=== PATIENT | male | born 1960 | race American Indian/Alaskan Native ===

== ENCOUNTER 2021-09-23 02:26 | Observation (INO) | payer MEDICARE ==
[2021-09-23] MEDS ORDERED: FAMOTIDINE 20 MG/2 ML INJ IV ONE (03:05)
--- NOTE | 2021-09-23 03:08 | Emergency Department Report ---
HPI - General Time Seen by Provider: 09/23/21 02:54 - HPI HPI: Room 17 Patient is a 60-year-old male present with chief complaint of angioedema. Patient states approximate 1 hour prior to arrival he noticed swelling in his tongue. Patient denies shortness of breath and just has difficulty speaking. Patient states he has been taking lisinopril for over 10 years. Patient was administered Solu-Medrol, subcu epi, Benadryl and Zofran prior to arrival ED Past Medical Hx - Past Medical History Hx Hypertension: Yes Hx Diabetes: Yes - Surgical History Additional Surgical History: Hip replacement - Family History Family history: no significant - Social History Smoking Status: Never Smoker Substance Use Type: None (Denies illicit drug use), Alcohol (Occasional) ED Review of Systems ROS: Stated complaint: LISINOPRIL RXN Other details as noted in HPI Constitutional: no symptoms reported Eyes: denies: eye pain ENT: other (Tongue swelling) Respiratory: denies: shortness of breath Cardiovascular: denies: chest pain Endocrine: no symptoms reported Gastrointestinal: nausea. denies: abdominal pain Genitourinary: denies: dysuria Musculoskeletal: denies: back pain Neurological: denies: headache Physical Exam - Physical Exam Physical Exam: GENERAL: The patient is well-developed well-nourished male sitting on stretcher not appearing to be in acute distress. [] HEENT: Normocephalic. Atraumatic. Extraocular motions are intact. Tongue swelling NECK: Supple. Trachea midline. No stridor CHEST/LUNGS: Clear to auscultation. There is no respiratory distress noted. HEART/CARDIOVASCULAR: Regular. There is no tachycardia. There is no gallop rub or murmur. ABDOMEN: Abdomen is soft, nontender. Patient has normal bowel sounds. There is no abdominal distention. SKIN: There is no rash. There is no edema. There is no diaphoresis. NEURO: The patient is awake, alert, and oriented. The patient is cooperative. The patient has no focal neurologic deficits. GCS 15 MUSCULOSKELETAL: There is no evidence of acute injury. ED Medical Decision Making - Lab Data Result diagrams: 09/23/21 03:08 09/23/21 03:08 Laboratory Tests 09/23/21 09/23/21 03:08 03:08 WBC 6.4 RBC 3.77 Hgb 10.9 L Hct 34.4 L MCV 91 MCH 29 MCHC 32 RDW 14.1 Plt Count 206 Lymph % (Auto) 33.5 [place] % (Auto) 6.7 Eos % (Auto) 3.6 Baso % (Auto) 0.7 Lymph # (Auto) 2.1 [place] # (Auto) 0.4 Eos # (Auto) 0.2 Baso # (Auto) 0.0 Seg Neutrophils % 55.5 Seg Neutrophils # 3.5 Sodium 138 Potassium 3.9 Chloride 100.8 Carbon Dioxide 19 L Anion Gap 22 BUN 28 H Creatinine 1.7 H Estimated GFR 41 BUN/Creatinine Ratio 16 Glucose 240 H Calcium 9.5 Critical care attestation.: If time is entered above; I have spent that time in minutes in the direct care of this critically ill patient, excluding procedure time. ED Disposition Clinical Impression: Angioedema Disposition: ADMITTED INPATIENT Is pt being admited?: Yes Does the pt Need Aspirin: No Condition: Fair Time of Disposition: 04:01 (Hospitalist called (Dr. Henry))
[2021-09-23 03:32] LABS: Basophils % (Auto) 0.7 % (0.0-1.8); Eosinophils # (Auto) 0.2 K/mm3 (0.0-0.4); Eosinophils % (Auto) 3.6 % (0.0-4.3); Hematocrit 34.4 % (35.5-45.6); Hemoglobin 10.9 gm/dl (11.8-15.2); Lymphocytes # (Auto) 2.1 K/mm3 (1.2-5.4); Lymphocytes % (Auto) 33.5 % (13.4-35.0); Mean Corpuscular HGB Conc 32 % (32-34); Mean Corpuscular Volume 91 fl (84-94); Monocytes # (Auto) 0.4 K/mm3 (0.0-0.8); Monocytes % (Auto) 6.7 % (0.0-7.3); Platelet Count 206 K/mm3 (140-440); Red Blood Count 3.77 M/mm3 (3.65-5.03); Red Cell Distribution Width 14.1 % (13.2-15.2)
[2021-09-23 03:49] LABS: Calcium 9.5 mg/dL (8.4-10.2)
[2021-09-23] MEDS ORDERED: MORPHINE 4 MG/1 ML INJ IV PRN (08:38)
[2021-09-23] MEDS ORDERED: DEXTROSE 50% IN WATER (25GM) 50 ML SYRINGE IV PRN (08:42)
[2021-09-23] MEDS ORDERED: DEXTROSE 10% *Hypoglycemia IV PRN (08:46)
[2021-09-23] MEDS ORDERED: ACETAMINOPHEN 325 MG TAB PO PRN (09:00)
[2021-09-23] MEDS ORDERED: MORPHINE 2 MG/1 ML INJ IV PRN (09:00)
[2021-09-23] MEDS ORDERED: ONDANSETRON 4 MG/2 ML INJ IV PRN (09:00)
[2021-09-23] MEDS ORDERED: D5W/0.9% NACL 1,000 ML IV SCH (09:00)
[2021-09-23] MEDS ORDERED: oxyCODONE /ACETAMINOPHEN 5-325MG TAB PO PRN (09:00)
[2021-09-23] MEDS: ENOXAPARIN 40 MG/0.4 ML INJ SUB-Q SCH (10:04)
[2021-09-23] MEDS: methylPREDNISolone Sod Succinate 40 MG/1 ML INJ IV SCH (10:05)
[2021-09-23] MEDS: INSULIN REGULAR, HUMAN 100 UNITS/1 ML SUB-Q SCH ×3 (11:22→23:12)
--- NOTE | 2021-09-23 12:12 | Consultation ---
History of Present Illness - Reason for Consult Consult date: 09/23/21 Angioedema - History of Present Illness 60 y/o male with complaints of angioedema Past History Past Medical History: hypertension Medications and Allergies Allergies Allergy/AdvReac Type Severity Reaction Status Date / Time lisinopril Allergy Swelling Verified 09/23/21 03:05 Active Meds: Active Medications Acetaminophen (Acetaminophen 325 Mg Tab) 650 mg PO Q4H PRN PRN Reason: Pain MILD(1-3)/Fever >100.5/ZAMORA Dextrose (Dextrose 10% *Hypoglycemia) 0 ml IV PRN PRN PRN Reason: Hypoglycemia Enoxaparin Sodium (Enoxaparin 40 Mg/0.4 Ml Inj) 40 mg SUB-Q DAILY [facility]; Protocol Last Admin: 09/23/21 10:04 Dose: 40 mg Dextrose/Sodium Chloride (D5ns) 1,000 mls @ 75 mls/hr IV DIRECT KERRY Insulin Human Regular (Insulin Regular, Human 100 Units/1 Ml) 0 units SUB-Q ACHS [facility]; Protocol Last Admin: 09/23/21 11:22 Dose: 6 units Methylprednisolone Sodium Succinate (Methylprednisolone Sod Succinate 40 Mg/1 Ml Inj) 20 mg IV DAILY [facility] Last Admin: 09/23/21 10:05 Dose: 20 mg Morphine Sulfate (Morphine 2 Mg/1 Ml Inj) 2 mg IV Q4H PRN PRN Reason: Pain , Severe (7-10) Ondansetron HCl (Ondansetron 4 Mg/2 Ml Inj) 4 mg IV Q8H PRN PRN Reason: Nausea And Vomiting Oxycodone/Acetaminophen (Oxycodone /Acetaminophen 5-325mg Tab) 1 tab PO Q6H PRN PRN Reason: Pain, Moderate (4-6) Sodium Chloride (Sodium Chloride 0.9% 10 Ml Flush Syringe) 10 ml IV BID [facility] Last Admin: 09/23/21 10:05 Dose: 10 ml Sodium Chloride (Sodium Chloride 0.9% 10 Ml Flush Syringe) 10 ml IV PRN PRN PRN Reason: LINE FLUSH Exam - Constitutional Vitals: Temp Pulse Resp BP Pulse Ox 98.8 F 79 18 140/73 94 09/23/21 02:35 09/23/21 08:42 09/23/21 08:42 09/23/21 08:42 09/23/21 08:42 Results - Labs CBC & Chem 7: 0322/22 03:08 09/23/21 03:08 Labs: Abnormal lab results 09/23/21 09/23/21 Range/Units 03:08 03:08 Hgb 10.9 L (11.8-15.2) gm/dl Hct 34.4 L (35.5-45.6) % Carbon Dioxide 19 L (22-30) mmol/L BUN 28 H (9-20) mg/dL Creatinine 1.7 H (0.8-1.3) mg/dL Glucose 240 H (75-100) mg/dL Assessment and Plan 60 y/o male with complaints of angioedema 1. Medication Review, Has been on lisinopril and it is known that timing of this drug does not play a role on when angioedema can happen 2. Suggest q8 hour steroids, q6 benadryl and BID pepci 3. Monitoring for upper airway noise stridor and close monitoring of patient
--- NOTE | 2021-09-23 16:14 | History and Physical Report ---
History of Present Illness Date of examination: 09/23/21 Date of admission: 09/23/21 08:38 Chief complaint: Angioedema History of present illness: Patient is a 60-year-old male past medical history of noninsulin-dependent type 2 diabetes mellitus, hypertension, hyperlipidemia, gout, and CKD stage III who presented with an acute presentation of angioedema (swelling of tongue and face) after being awakened by oral irritation. The patient describes this being a new phenomenon, and he admits to being on lisinopril for over 10 years. The patient denied any shortness of breath or difficulty with breathing or swallowing. The swelling has mostly resolved. On presentation, the patient was found to be hemodynamically stable saturating well on room oxygen. Patient is being monitored in the setting of recent angioedema. Past History Past Medical History: diabetes, hypertension, hyperlipidemia, renal failure, other (Gout) Past Surgical History: total hip replacement Social history: , lives with family, full code Family history: hypertension Medications and Allergies Allergies Allergy/AdvReac Type Severity Reaction Status Date / Time lisinopril Allergy Swelling Verified 09/23/21 03:05 Home Medications Medication Instructions Recorded Confirmed Last Taken Type Colchicine [Colcrys] 1.2 mg PO DAILY 09/23/21 09/23/21 Unknown History Glimepiride [Amaryl] 8 mg PO QAM 09/23/21 09/23/21 Unknown History Pantoprazole [Protonix] 40 mg PO QDAY 09/23/21 09/23/21 Unknown History allopurinoL [Zyloprim] 100 mg PO QDAY 09/23/21 09/23/21 Unknown History metFORMIN XR [Glucophage XR] 1,000 mg PO BID 09/23/21 09/23/21 Unknown History Active Meds: Active Medications Acetaminophen (Acetaminophen 325 Mg Tab) 650 mg PO Q4H PRN PRN Reason: Pain MILD(1-3)/Fever >100.5/ZAMORA Dextrose (Dextrose 10% *Hypoglycemia) 0 ml IV PRN PRN PRN Reason: Hypoglycemia Enoxaparin Sodium (Enoxaparin 40 Mg/0.4 Ml Inj) 40 mg SUB-Q DAILY [facility]; Protocol Last Admin: 09/23/21 10:04 Dose: 40 mg Dextrose/Sodium Chloride (D5ns) 1,000 mls @ 75 mls/hr IV DIRECT KERRY Insulin Human Regular (Insulin Regular, Human 100 Units/1 Ml) 0 units SUB-Q ACHS [facility]; Protocol Last Admin: 09/23/21 11:22 Dose: 6 units Methylprednisolone Sodium Succinate (Methylprednisolone Sod Succinate 40 Mg/1 Ml Inj) 20 mg IV DAILY [facility] Last Admin: 09/23/21 10:05 Dose: 20 mg Morphine Sulfate (Morphine 2 Mg/1 Ml Inj) 2 mg IV Q4H PRN PRN Reason: Pain , Severe (7-10) Ondansetron HCl (Ondansetron 4 Mg/2 Ml Inj) 4 mg IV Q8H PRN PRN Reason: Nausea And Vomiting Oxycodone/Acetaminophen (Oxycodone /Acetaminophen 5-325mg Tab) 1 tab PO Q6H PRN PRN Reason: Pain, Moderate (4-6) Sodium Chloride (Sodium Chloride 0.9% 10 Ml Flush Syringe) 10 ml IV BID [facility] Last Admin: 09/23/21 10:05 Dose: 10 ml Sodium Chloride (Sodium Chloride 0.9% 10 Ml Flush Syringe) 10 ml IV PRN PRN PRN Reason: LINE FLUSH Review of Systems All systems: negative Ears, nose, mouth and throat: swelling in mouth, swelling in throat Exam - Constitutional Vitals: Temp Pulse Resp BP Pulse Ox 98.8 F 79 18 140/73 96 09/23/21 02:35 09/23/21 08:42 09/23/21 08:42 09/23/21 08:42 09/23/21 12:00 General appearance: Present: no acute distress, well-nourished, obese - EENT Eyes: Present: PERRL, EOM intact ENT: hearing intact, clear oral mucosa, dentition normal - Neck Neck: Present: supple, normal ROM - Respiratory Respiratory effort: normal Respiratory: bilateral: CTA - Cardiovascular Rhythm: regular Heart Sounds: Present: S1 & S2 - Extremities Extremities: no ischemia, pulses intact, pulses symmetrical, No edema, normal temperature, normal color, Full ROM Peripheral Pulses: within normal limits - Abdominal General gastrointestinal: Present: soft, non-tender, non-distended, normal bowel sounds Male genitourinary: Present: deferred - Rectal Rectal Exam: deferred - Integumentary Integumentary: Present: clear, warm, dry - Musculoskeletal Musculoskeletal: strength equal bilaterally - Psychiatric Psychiatric: appropriate mood/affect, intact judgment & insight, memory intact, cooperative - Neurologic Neurologic: CNII-XII intact, moves all extremities - Allied Health Allied health notes reviewed: nursing Results - Labs CBC & Chem 7: 09/23/21 03:08 09/23/21 03:08 Labs: Laboratory Last Values WBC 6.4 K/mm3 (4.5-11.0) 09/23/21 03:08 RBC 3.77 M/mm3 (3.65-5.03) 09/23/21 03:08 Hgb 10.9 gm/dl (11.8-15.2) L 09/23/21 03:08 Hct 34.4 % (35.5-45.6) L 09/23/21 03:08 MCV 91 fl (84-94) 09/23/21 03:08 MCH 29 pg (28-32) 09/23/21 03:08 MCHC 32 % (32-34) 09/23/21 03:08 RDW 14.1 % (13.2-15.2) 09/23/21 03:08 Plt Count 206 K/mm3 (140-440) 09/23/21 03:08 Lymph % (Auto) 33.5 % (13.4-35.0) 09/23/21 03:08 [place] % (Auto) 6.7 % (0.0-7.3) 09/23/21 03:08 Eos % (Auto) 3.6 % (0.0-4.3) 09/23/21 03:08 Baso % (Auto) 0.7 % (0.0-1.8) 09/23/21 03:08 Lymph # (Auto) 2.1 K/mm3 (1.2-5.4) 09/23/21 03:08 [place] # (Auto) 0.4 K/mm3 (0.0-0.8) 09/23/21 03:08 Eos # (Auto) 0.2 K/mm3 (0.0-0.4) 09/23/21 03:08 Baso # (Auto) 0.0 K/mm3 (0.0-0.1) 09/23/21 03:08 Seg Neutrophils % 55.5 % (40.0-70.0) 09/23/21 03:08 Seg Neutrophils # 3.5 K/mm3 (1.8-7.7) 09/23/21 03:08 Sodium 138 mmol/L (137-145) 09/23/21 03:08 Potassium 3.9 mmol/L (3.6-5.0) 09/23/21 03:08 Chloride 100.8 mmol/L (98-107) 09/23/21 03:08 Carbon Dioxide 19 mmol/L (22-30) L 09/23/21 03:08 Anion Gap 22 mmol/L 09/23/21 03:08 BUN 28 mg/dL (9-20) H 09/23/21 03:08 Creatinine 1.7 mg/dL (0.8-1.3) H 09/23/21 03:08 Estimated GFR 41 ml/min 09/23/21 03:08 BUN/Creatinine Ratio 16 % 09/23/21 03:08 Glucose 240 mg/dL (75-100) H 09/23/21 03:08 POC Glucose 318 mg/dL (70-105) H 09/23/21 10:34 Calcium 9.5 mg/dL (8.4-10.2) 09/23/21 03:08 Luna/IV: Voiding Method Toilet Assessment and Plan Assessment and plan: Patient is a 60-year-old male past medical history of noninsulin-dependent type 2 diabetes mellitus, hypertension, hyperlipidemia, gout, and CKD stage III who presented with an acute presentation of angioedema (swelling of tongue and face) after being awakened by oral irritation. The patient describes this being a new phenomenon, and he admits to being on lisinopril for over 10 years. The patient denied any shortness of breath or difficulty with breathing or swallowing. The swelling has mostly resolved. On presentation, the patient was found to be hemodynamically stable saturating well on room oxygen. Patient is being monitored in the setting of recent angioedema. #Angioedema Continue n.p.o. status Starting IV methylprednisolone 20 mg daily. Can be transitioned to oral steroid upon discharge. Pulmonology consulted; appreciate recs Discontinued lisinopril from [facility]. Counseled patient at length about the importance of avoiding ANDREINA inhibitors. Patient can be transitioned to losartan 50 mg daily upon discharge. Continue to monitor #Hypertension - home medications: Lisinopril 20 mg daily-currently discontinuing in the setting of angioedema - current medications: Currently holding as patient is normotensive. We will initiate losartan 50 mg daily tomorrow morning. - SBP goal <160 and DBP goal <90 while inpatient - continue to monitor #Non-insulin dependent type II diabetes mellitus with hyperglycemia - hemoglobin A1c: Unknown - home regimen: Glimepiride 8 mg, Metformin 1000 mg twice daily, - current regimen: Moderate SSI while patient is n.p.o. 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 Renally dose meds and avoid nephrotoxic drugs. #Gout Restarting home allopurinol 100 mg daily and colchicine 1.25 mg daily #Normocytic anemia Hemoglobin 10.9 Ordering iron studies to determine etiology #Morbid obesity #Weight loss counseling #Exercise counseling - BMI 40.2 - Counseled patient on the importance of weight loss, incorporating exercise, and dietary changes (lean meats, fresh fruits and vegetables, and water intake). Patient expresses understanding. - Time: +15 min #Discharge planning - Patient is pending discharge tomorrow - Case management has been made aware. - Discharge is tentatively tomorrow Advance Directives: No VTE prophylaxis?: Chemical Plan of care discussed with patient/family: Yes
[2021-09-23] MEDS ORDERED: INSULIN REGULAR, HUMAN 100 UNITS/1 ML SUB-Q ONE (22:36)
[2021-09-24 05:29] LABS: Basophils % (Auto) 0.3 % (0.0-1.8); Eosinophils % (Auto) 0.1 % (0.0-4.3); Hematocrit 34.9 % (35.5-45.6); Hemoglobin 11.4 gm/dl (11.8-15.2); Lymphocytes # (Auto) 1.7 K/mm3 (1.2-5.4); Lymphocytes % (Auto) 16.7 % (13.4-35.0); Mean Corpuscular HGB Conc 33 % (32-34); Mean Corpuscular Volume 91 fl (84-94); Monocytes # (Auto) 0.8 K/mm3 (0.0-0.8); Monocytes % (Auto) 7.7 % (0.0-7.3); Platelet Count 217 K/mm3 (140-440); Red Blood Count 3.85 M/mm3 (3.65-5.03)
[2021-09-24 05:47] LABS: Calcium 9.3 mg/dL (8.4-10.2)
--- NOTE | 2021-09-24 08:25 | Discharge Summary ---
Providers - Providers Date of Admission: 09/23/21 08:38 Date of discharge: 09/24/21 Attending physician: SILVA PEDRO MD 09/23/21 08:38 Consult to Physician [CONS] Routine Comment: Consulting Provider: JEFF LEE Physician Instructions: Reason For Exam: Angioedema Hospitalization Reason for admission: Angioedema Condition: Fair Pertinent studies: Reviewed. Procedures: None. Hospital course: Patient is a 60-year-old male past medical history of noninsulin-dependent type 2 diabetes mellitus, hypertension, hyperlipidemia, gout, and CKD stage III who presented with an acute presentation of angioedema (swelling of tongue and face) after being awakened by oral irritation. The patient describes this being a new phenomenon, and he admits to being on lisinopril for over 10 years. The patient denied any shortness of breath or difficulty with breathing or swallowing. The swelling has mostly resolved. On presentation, the patient was found to be hemodynamically stable saturating well on room oxygen. The patient was being monitored in the setting of recent angioedema. Patient was started on IV steroids to prevent any possible further swelling/edema. Patient was n.p.o. during the stay. Patient was counseled at length about the importance of avoiding ANDREINA inhibitors to prevent this from reoccurring, and he expresses understanding. This was also explained to his family who was present at the bedside. The patient will be discharging with losartan 50 mg daily, and he will follow with his primary care provider. The patient is medically cleared for discharge. Disposition: 01 HOME / SELF CARE / HOMELESS Final Discharge Diagnosis (Prints w/discharge instructions): Angioedema, hypertension, noninsulin-dependent type 2 diabetes mellitus with hyperglycemia, CKD stage III, gout, normocytic anemia, morbid obesity Time spent for discharge: 45 min Core Measure Documentation - Palliative Care Palliative Care/ Comfort Measures: Not Applicable - Core Measures Any of the following diagnoses?: none Exam - Constitutional Vitals: Temp Pulse Resp BP Pulse Ox 98.8 F 79 18 144/83 95 09/24/21 05:47 09/24/21 05:47 09/24/21 05:47 09/24/21 05:47 09/24/21 05:47 General appearance: Present: no acute distress, well-nourished, obese - EENT Eyes: Present: PERRL, EOM intact ENT: hearing intact, clear oral mucosa, dentition normal - Neck Neck: Present: supple, normal ROM - Respiratory Respiratory effort: normal Respiratory: bilateral: CTA - Cardiovascular Rhythm: regular Heart Sounds: Present: S1 & S2 - Extremities Extremities: no ischemia, pulses intact, pulses symmetrical, No edema, normal temperature, normal color, Full ROM Peripheral Pulses: within normal limits - Abdominal General gastrointestinal: Present: soft, non-tender, non-distended, normal bowel sounds Male genitourinary: Present: deferred - Rectal Rectal Exam: deferred - Integumentary Integumentary: Present: clear, warm, dry - Musculoskeletal Musculoskeletal: strength equal bilaterally - Psychiatric Psychiatric: appropriate mood/affect, intact judgment & insight, memory intact, cooperative - Neurologic Neurologic: CNII-XII intact, moves all extremities - Allied Health Allied health notes reviewed: nursing Plan Activity: advance as tolerated Diet: low salt, diabetic Additional Instructions: Patient is a 60-year-old male past medical history of noninsulin-dependent type 2 diabetes mellitus, hypertension, hyperlipidemia, gout, and CKD stage III who presented with an acute presentation of angioedema (swelling of tongue and face) after being awakened by oral irritation. The patient describes this being a new phenomenon, and he admits to being on lisinopril for over 10 years. The patient denied any shortness of breath or difficulty with breathing or swallowing. The swelling has mostly resolved. On presentation, the patient was found to be hemodynamically stable saturating well on room oxygen. The patient was being monitored in the setting of recent angioedema. Patient was started on IV steroids to prevent any possible further swelling/edema. Patient was n.p.o. during the stay. Patient was counseled at length about the importance of avoiding ANDREINA inhibitors to prevent this from reoccurring, and he expresses understanding. This was also explained to his family who was present at the bedside. The patient will be discharging with losartan 50 mg daily, and he will follow with his primary care provider. The patient is medically cleared for discharge. Care Plan Goals: Patient is medically clear for discharge. Assessment: Patient is a 60-year-old male past medical history of noninsulin-dependent type 2 diabetes mellitus, hypertension, hyperlipidemia, gout, and CKD stage III who presented with an acute presentation of angioedema (swelling of tongue and face) after being awakened by oral irritation. The patient describes this being a new phenomenon, and he admits to being on lisinopril for over 10 years. The patient denied any shortness of breath or difficulty with breathing or swallowing. The swelling has mostly resolved. On presentation, the patient was found to be hemodynamically stable saturating well on room oxygen. The patient was being monitored in the setting of recent angioedema. Patient was started on IV steroids to prevent any possible further swelling/edema. Patient was n.p.o. during the stay. Patient was counseled at length about the importance of avoiding ANDREINA inhibitors to prevent this from reoccurring, and he expresses understanding. This was also explained to his family who was present at the bedside. The patient will be discharging with losartan 50 mg daily, and he will follow with his primary care provider. The patient is medically cleared for discharge. Follow up with: RAJEEV CAIN [Other] - 7 Days Forms: Work/School Release Form Prescriptions: Losartan [Cozaar] 50 mg PO QDAY #30 tablet
[2021-09-24] MEDS: INSULIN REGULAR, HUMAN 100 UNITS/1 ML SUB-Q SCH (08:38)
[2021-09-24] MEDS ORDERED: metFORMIN XR 500MG TAB PO SCH (09:00)
[2021-09-24] MEDS ORDERED: GLIMEPIRIDE 4 MG TAB PO SCH (09:00)
[2021-09-24] MEDS: ENOXAPARIN 40 MG/0.4 ML INJ SUB-Q SCH (09:16)
[2021-09-24] MEDS: methylPREDNISolone Sod Succinate 40 MG/1 ML INJ IV SCH (09:16)
[2021-09-24 09:17] VITALS: BP 133/78
[2021-09-24] MEDS ORDERED: LOSARTAN 50 MG TAB PO SCH (10:00)
[2021-09-24] MEDS ORDERED: COLCHICINE 0.6 MG TAB PO SCH (10:00)
[2021-09-24] MEDS ORDERED: PANTOPRAZOLE 40 MG TAB PO SCH (10:00)
[2021-09-24] MEDS ORDERED: allopurinoL 100 MG TAB PO SCH (10:00)
== END 2021-09-24 12:30 | disposition home or self-care (01) ==
LOC: ED 02:26 → 3A 08:38
PROVIDERS: ADMIT Student in an Organized Health Care Education/Training Program; ATTEND Student in an Organized Health Care Education/Training Program
DX: T78.3XXA Angioneurotic edema, initial encounter (principal); N17.9 Acute kidney failure, unspecified; I12.9 Hypertensive chronic kidney disease with stage 1 through stage 4 chronic kidney disease, or unspecified chronic kidney disease; N18.30 Chronic kidney disease, stage 3 unspecified; E11.65 Type 2 diabetes mellitus with hyperglycemia; M10.9 Gout, unspecified; D64.9 Anemia, unspecified; E66.01 Morbid (severe) obesity due to excess calories; R63.4 Abnormal weight loss; Z68.41 Body mass index [BMI] 40.0-44.9, adult; Z79.899 Other long term (current) drug therapy; Z98.890 Other specified postprocedural states; Z96.649 Presence of unspecified artificial hip joint; Z79.84 Long term (current) use of oral hypoglycemic drugs; Z79.4 Long term (current) use of insulin
CPT/HCPCS: 36415; 80048; 82962; 85025; 96361; 96372; 96374; 96375; 96376; 99284; G0378; J1650; J2920; J3490; J7042; Q9967; J1815

== ENCOUNTER 2021-10-09 16:18 | Emergency (ER) | payer MEDICARE ==
[2021-10-09] MEDS ORDERED: DICYCLOMINE 10 MG/5 ML ORAL LIQD PO ONE (16:37)
[2021-10-09] MEDS ORDERED: ALUM-MAG HYDROXIDE-SIMETHICONE 200-200-20MG/5ML ORAL LIQD 30 ML PO ONE (16:37)
[2021-10-09] MEDS ORDERED: LIDOCAINE VISCOUS 2% 15 ML ORAL LIQD PO ONE (16:39)
--- NOTE | 2021-10-09 17:04 | XRay Report ---
CHEST 2 VIEWS INDICATION / CLINICAL INFORMATION: chest pain. COMPARISON: None available. FINDINGS: SUPPORT DEVICES: None. HEART / MEDIASTINUM: No significant abnormality. LUNGS / PLEURA: No significant pulmonary or pleural abnormality. No pneumothorax. ADDITIONAL FINDINGS: No significant additional findings. IMPRESSION: 1. No acute findings. Signer Name: Alfonso Diaz MD Signed: 10/09/2021 5:00 PM Workstation Name: [employer]
--- NOTE | 2021-10-09 17:06 | Emergency Department Report ---
ED General Adult HPI - General Chief complaint: Chest Pain Stated complaint: CHEST PAINS Time Seen by Provider: 10/09/21 16:36 Source: patient Mode of arrival: Ambulatory Limitations: No Limitations - History of Present Illness Initial comments: Patient is 60 years old male with history of hypertension. Patient presented to the emergency room complaining of right sided chest pain and right upper quadrant pain that started all of a sudden this afternoon. Patient denied any left-sided or substernal chest pain. He also denied any shortness of breath. No fever or chills. Patient also denied any nausea or vomiting. Patient stated that his symptoms subsiding significantly. Severity scale (0 -10): 10 - Related Data Home Medications Medication Instructions Recorded Confirmed Last Taken Colchicine [Colcrys] 1.2 mg PO DAILY 09/23/21 09/23/21 Unknown Glimepiride [Amaryl] 8 mg PO QAM 09/23/21 09/23/21 Unknown Pantoprazole [Protonix TAB] 40 mg PO QDAY 09/23/21 09/23/21 Unknown allopurinoL [Zyloprim] 100 mg PO QDAY 09/23/21 09/23/21 Unknown metFORMIN XR [Glucophage XR] 1,000 mg PO BID 09/23/21 09/23/21 Unknown Previous Rx's Medication Instructions Recorded Last Taken Type Losartan [Cozaar] 50 mg PO QDAY #30 tablet 09/24/21 Unknown Rx Allergies Allergy/AdvReac Type Severity Reaction Status Date / Time lisinopril Allergy Swelling Verified 09/23/21 03:05 ED Review of Systems ROS: Stated complaint: CHEST PAINS Other details as noted in HPI Comment: All other systems reviewed and negative Constitutional: denies: chills, fever Respiratory: denies: cough, shortness of breath, SOB with exertion, SOB at rest Cardiovascular: chest pain. denies: palpitations Gastrointestinal: abdominal pain. denies: nausea, vomiting, diarrhea, cons tipation, hematemesis, melena, hematochezia Musculoskeletal: denies: back pain Neurological: denies: headache, weakness, numbness, paresthesias, confusion ED Past Medical Hx - Past Medical History Hx Hypertension: Yes Hx Diabetes: Yes - Surgical History Past Surgical History?: Yes Additional Surgical History: Hip replacement - Social History Smoking Status: Never Smoker Substance Use Type: None - Medications Home Medications: Home Medications Medication Instructions Recorded Confirmed Last Taken Type Colchicine [Colcrys] 1.2 mg PO DAILY 09/23/21 09/23/21 Unknown History Glimepiride [Amaryl] 8 mg PO QAM 09/23/21 09/23/21 Unknown History Pantoprazole [Protonix TAB] 40 mg PO QDAY 09/23/21 09/23/21 Unknown History allopurinoL [Zyloprim] 100 mg PO QDAY 09/23/21 09/23/21 Unknown History metFORMIN XR [Glucophage XR] 1,000 mg PO BID 09/23/21 09/23/21 Unknown History Losartan [Cozaar] 50 mg PO QDAY #30 tablet 09/24/21 Unknown Rx ED Physical Exam - General Limitations: No Limitations General appearance: alert, in no apparent distress - Head Head exam: Present: atraumatic, normocephalic, normal inspection - Eye Eye exam: Present: normal appearance - ENT ENT exam: Present: normal exam, normal orophraynx, mucous membranes moist - Neck Neck exam: Present: normal inspection, full ROM. Absent: tenderness, mening ismus - Respiratory Respiratory exam: Present: normal lung sounds bilaterally - Cardiovascular Cardiovascular Exam: Present: regular rate, normal rhythm, normal heart sounds - GI/Abdominal GI/Abdominal exam: Present: soft, normal bowel sounds. Absent: distended, tenderness, guarding, rebound, rigid, hyperactive bowel sounds, hypoactive bowel sounds, organomegaly, mass, bruit, pulsatile mass - Extremities Exam Extremities exam: Present: normal inspection, full ROM, normal capillary refill. Absent: tenderness - Back Exam Back exam: Present: normal inspection, full ROM. Absent: CVA tenderness (R), CVA tenderness (L) - Neurological Exam Neurological exam: Present: alert, oriented X3, CN II-XII intact, normal gait, reflexes normal. Absent: motor sensory deficit - Psychiatric Psychiatric exam: Present: normal mood - Skin Skin exam: Present: warm, intact, normal color ED Course Vital Signs 10/09/21 16:31 Temperature 97.9 F Pulse Rate 90 Respiratory 18 Rate Blood Pressure 172/100 Blood Pressure 172/100 [Right] O2 Sat by Pulse 97 Oximetry ED Medical Decision Making - Lab Data Result diagrams: 10/09/21 16:52 10/09/21 16:52 - EKG Data -: EKG Interpreted by Me EKG shows normal: sinus rhythm Rate: normal - EKG Data Interpretation: no acute changes - Radiology Data Radiology results: report reviewed - Medical Decision Making Patient is 60 years old male with history of hypertension. Patient presented to the emergency room complaining of right sided chest pain and right upper quadrant pain that started all of a sudden this afternoon. Patient denied any left-sided or substernal chest pain. He also denied any shortness of breath. No fever or chills. Patient also denied any nausea or vomiting. Patient stated that his symptoms subsiding significantly. EKG is unremarkable. Labs reviewed and is unremarkable except for slightly elev ated lipase. Troponin is negative x2. CT abdomen and pelvis is negative for acute finding. Patient advised to follow-up with his primary care physician in the next 2 to 3 days and to return to the ER if he develop any new symptoms. Critical care attestation.: If time is entered above; I have spent that time in minutes in the direct care of this critically ill patient, excluding procedure time. ED Disposition Clinical Impression: Acute abdominal pain, Acute pancreatitis Disposition: 01 HOME / SELF CARE / HOMELESS Is pt being admited?: No Condition: Stable Instructions: Abdominal Pain, Adult, [id number] Referrals: TRACEE RAMIREZ [Other] - 3-5 Days
[2021-10-09 17:17] LABS: Hematocrit 36.2 % (35.5-45.6); Hemoglobin 11.7 gm/dl (11.8-15.2); Mean Corpuscular HGB Conc 32 % (32-34); Mean Corpuscular Volume 91 fl (84-94); Platelet Count 213 K/mm3 (140-440); Red Blood Count 3.97 M/mm3 (3.65-5.03)
[2021-10-09 17:36] LABS: Alanine Aminotransferase 33 units/L (7-56); Albumin 4.2 g/dL (3.9-5); BUN/Creatinine Ratio 13; Blood Urea Nitrogen 22 mg/dL (9-20); Hemolysis Index 5
[2021-10-09 18:03] LABS: Bilirubin,Direct < 0.2 mg/dL (0-0.2)
--- NOTE | 2021-10-09 19:27 | Cat Scan Report ---
CT ABDOMEN AND PELVIS WITHOUT CONTRAST INDICATION / CLINICAL INFORMATION: ABDOMINAL PAIN. TECHNIQUE: Axial CT images were obtained through the abdomen and pelvis without IV contrast. All CT scans at this location are performed using CT dose reduction for ALARA by means of automated exposure control. COMPARISON: None available. FINDINGS: LOWER CHEST: No significant abnormality. LIVER: Enlarged and hypodense characteristic of fatty infiltration. GALLBLADDER: No significant abnormality. BILE DUCTS: No significant abnormality. PANCREAS: No significant abnormality. SPLEEN: No significant abnormality. ADRENALS: No significant abnormality. RIGHT KIDNEY / URETER: Nonobstructing stones in the mid kidney measuring up to 9 mm. No ureteral ston e or hydronephrosis. LEFT KIDNEY / URETER: Small hyperdense and simple cysts on the lower pole. No stones or hydronephrosi s. STOMACH / SMALL BOWEL: Mild wall thickening of the distal esophagus. Stomach and small bowel show no significant abnormality. COLON: No significant abnormality. APPENDIX: No significant abnormality. PERITONEUM: No free fluid. No free air. No fluid collection. LYMPH NODES: No significant adenopathy. AORTA / ARTERIES: Mild atherosclerotic calcification without acute abnormality. IVC / VEINS: No significant abnormality. URINARY BLADDER: Contracted and thick walled. REPRODUCTIVE ORGANS: No significant abnormality. ADDITIONAL FINDINGS: None. SKELETAL SYSTEM: Curvilinear subchondral sclerosis in the left femoral head characteristic of early s tage osteonecrosis/AVN. Right total hip arthroplasty with expected appearance. IMPRESSION: 1. No inflammatory process or bowel obstruction. 2. Distal esophageal thickening which can be seen in esophagitis. 3. Hepatomegaly with hepatic steatosis. 4. Right nephrolithiasis but no ureteral stone or hydronephrosis. 5. Early stage left femoral head osteonecrosis/AVN. Signer Name: Olga Lidia Romero MD Signed: 10/09/2021 7:23 PM Workstation Name: [id number]
[2021-10-09 21:03] VITALS: BP 137/84
--- NOTE | 2021-10-10 11:40 | Electrocardiograph Report ---
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
== END 2021-10-09 21:05 | disposition home or self-care (01) ==
LOC: ED 16:18
DX: K85.90 Acute pancreatitis without necrosis or infection, unspecified (principal); I10 Essential (primary) hypertension; E11.9 Type 2 diabetes mellitus without complications; Z88.8 Allergy status to other drugs, medicaments and biological substances
CPT/HCPCS: 36415; 71046; 74176; 80053; 82248; 83690; 84484; 85027; 93005; 99284